=== PATIENT | female | born 1955 | race Caucasian/White ===

== ENCOUNTER 2018-06-29 11:15 | Emergency (ER) | payer MEDICARE, MEDICAID | END 2018-06-29 12:11 | disposition home or self-care (01) | LOC: BURERS 11:15 | DX: R42 Dizziness and giddiness (principal); I10 Essential (primary) hypertension | CPT/HCPCS: 99283 ==

== ENCOUNTER 2019-07-04 11:02 | Emergency (ER) | payer MEDICARE, MEDICAID | END 2019-07-04 11:36 | disposition home or self-care (01) | LOC: BURERS 11:02 | DX: S83.412A Sprain of medial collateral ligament of left knee, initial encounter (principal); I10 Essential (primary) hypertension; Z79.899 Other long term (current) drug therapy; Z79.1 Long term (current) use of non-steroidal anti-inflammatories (NSAID); X58.XXXA Exposure to other specified factors, initial encounter | CPT/HCPCS: 99283 ==

== ENCOUNTER 2019-07-07 13:57 | Outpatient (CLI) | payer MEDICARE, MEDICAID ==
--- NOTE | 2019-07-08 08:08 | ULT ---
LEFT LOWER EXTREMITY VENOUS ULTRASOUND: 07/07/19 Color duplex Doppler ultrasonography of the lower extremity was done for evaluation of pain. No echog enic clot was seen in the deep veins. All deep veins were freely compressible from groin to ankle. Th ere was normal Doppler response to augmentation maneuvers. IMPRESSION: No evidence of DVT. POS: HOME
== END 2019-07-07 13:58 | disposition home or self-care (01) ==
LOC: BURULT 13:57
PROVIDERS: ATTEND Family Medicine
DX: M25.562 Pain in left knee (principal); R06.02 Shortness of breath; R79.89 Other specified abnormal findings of blood chemistry